=== PATIENT | female | born 2000 | race Caucasian/White ===

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

== ENCOUNTER → 2022-01-12 07:17 | Outpatient (CLI) | payer OTHER, SELFPAY ==
[2022-01-12 07:27] LABS: Microscopic, Urine URINE MICROSCOPIC (MICROSCOPIC)
[2022-01-12 08:29] LABS: HCG Qualitative, Serum Negative (Negative)
[2022-01-12 08:32] LABS: Appearance,Urine CLEAR (Clear); Bilirubin,Urine Negative (Negative); Blood, Urine 2+ (Negative); Color,Urine YELLOW (Yellow); Glucose,Urine (UA) Negative (Negative); Ketones,Urine Negative (Negative); Leukocyte Esterase,Urine Negative (Negative); Nitrate,Urine Negative (Negative); Protein,Urine Negative (Negative); Specific Gravity, Urine >= 1.030 (1.005-1.030)
[2022-01-12 08:58] LABS: Bacteria,Urine 1+ /lpf; Mucus,Urine 1+ /lpf
[2022-01-13 09:23] LABS: HIV Screen 4th Generation wRfx Non Reactive (Non Reactive)
[2022-01-13 12:13] LABS: Hep A Ab, IgM Negative (Negative); Hepatitis B Core Antibody IgM Negative (Negative); Hepatitis B Surface Antigen Negative (Negative); Hepatitis C Antibody <0.1 s/co ratio (0.0-0.9)
[2022-01-13 15:29] LABS: Treponema pallidum Ab (FTA-ABS Non Reactive (Non Reactive)
[2022-01-14 09:14] LABS: Neisseria gonorrhoeae, NAA Negative (Negative)
== END ==
PROVIDERS: Visit Provider Internal Medicine Adolescent Medicine
DX: N94.6 Dysmenorrhea, unspecified (principal); R30.0 Dysuria; Z11.3 Encounter for screening for infections with a predominantly sexual mode of transmission; Z11.4 Encounter for screening for human immunodeficiency virus [HIV]
CPT/HCPCS: 36415; 80074; 81001; 84703; 86703; 86780; 87591; G0432

== ENCOUNTER 2023-09-29 15:31 | Emergency (ER) | payer OTHER, SELFPAY ==
[2023-09-29 16:30] VITALS: BP 123/70; PULSE 88; RESP 21; TEMP 36.6; O2SAT 100; BMI 29.8
--- NOTE | 2023-09-29 16:39 | EXP.UTC ---
Discharge Plan Disposition Patient Disposition: Home, Self-Care Condition: Good Prescriptions Prescriptions: No Action hydrocortisone 28.4 GM cream 1 applicatio TP BID Qty: 1 0RF Rx Instructions: apply to eczema on both hands twice daily meloxicam 15 MG tablet 15 mg PO DAILY Qty: 7 0RF Referrals Follow up/Referrals: Provider,Referral, MD [Primary Care Provider] - See instructions Activity Restrictions/Add. Instructions Additional Instructions/Restrictions: *Monitor Temp, Over the counter Motrin or Tylenol as directed/as needed Tylenol every 4 hours and Motrin every 6 hours (as long as your family doctor has told you that you can take it) for fever or pain. and straight to ER if unable to lower temp less than 101.0 after medication given *Humidifier/Vaporizer Follow up IMMEDIATELY for new or worsening symptoms or no Noticeable improvement over the next 48-72 hours. 911 for difficulty breathing or swallowing You were tested for today for COVID19 your test result should be back in the next 24hours you may check your results on the [facility]? My Health Portal if you are positive you must Quarantine for 5 days Clinical Impressions Clinical Impression: Exposure to COVID-19 virus Instructions Patient Instructions: DI for COVID-19 (Suspected or Confirmed ) Discharge ED Provider: Tiffani Garza [facility] [place] HPI General Stated complaint: exposed to covid- test Time Seen by Provider: 09/29/23 16:39 History of Present Illness Provider Complaint: Patient states that she was around family member at [facility] that tested positive for COVID States that she isnt having any symptoms or anything but wanted to get tested due to exposure Related Data Previous Rx's Medication Instructions Recorded hydrocortisone 1 % topical cream 1 applicatio TP BID #1 tube 01/12/21 meloxicam 15 mg tablet 15 mg PO DAILY #7 tabs 12/11/21 Allergies Allergy/AdvReac Type Severity Reaction Status Date / Time No Known Allergies Allergy Verified 08/03/19 15:18 [facility] Disclaimer: The information contained in this section may have been updated after the patient was seen, as this information can be updated by other users. Social History Smoking Status: Current every day smoker alcohol intake: never substance use type: denies use current occupational status: other Travel in the last 8 weeks: None household members: family housing: house ROS Obtained: Yes All systems reviewed & no additional complaints except as documented and Yes Systems reviewed as appropriate & no additional complaints except as documented Constitutional Constitutional: Reports system reviewed and no additional complaints, except as documented and Reports as per HPI ENT Ears, Nose, Mouth, and Throat: Reports system reviewed and no additional complaints, except as documented, Reports as per HPI, Denies otalgia, Denies nasal congestion, Denies nasal discharge, Denies sinus pressure and Denies sore throat Cardiovascular Cardiovascular: Reports system reviewed and no additional complaints, except as documented and Reports as per HPI Respiratory Respiratory: Reports system reviewed and no additional complaints, except as documented, Reports as per HPI, Denies shortness of breath, Denies chest congestion and Denies cough Gastrointestinal Gastrointestingal: Reports system reviewed and no additional complaints, except as documented and as per HPI Musculoskeletal Musculoskeletal: Reports system reviewed and no additional complaints, except as documented and Reports as per HPI Physical Exam General General appearance: alert and in no apparent distress ENT ENT exam: Present mucous membranes moist Expanded ENT Exam Nose exam: Absent sinus tenderness Throat exam: Present normal inspection Chest Chest inspection: Present normal inspection and symmetric chest wall rise Respiratory Respiratory exam: Present normal lung sounds bilaterally; Absen
[2023-09-29 16:59] VITALS: BP 123/70; PULSE 88; RESP 21; TEMP 36.6; O2SAT 100
== END 2023-09-29 17:05 | disposition home or self-care (01) ==
PROVIDERS: Emergency Provider Nurse Practitioner
DX: Z20.822 Contact with and (suspected) exposure to COVID-19 (principal)
CPT/HCPCS: 87635; 99212; G0463

== ENCOUNTER 2023-10-09 17:38 | Emergency (ER) | payer OTHER, SELFPAY ==
[2023-10-09 17:39] VITALS: BP 157/90; PULSE 88; RESP 18; TEMP 36.4; O2SAT 97; BMI 27.1
--- NOTE | 2023-10-09 17:44 | PC.NURSE ---
pt unable to urinate at this time, states she urinated right before arrival
[2023-10-09 18:00] VITALS: BP 141/79; PULSE 118; RESP 20; O2SAT 96
[2023-10-09 18:30] VITALS: BP 143/99; PULSE 120; RESP 20; O2SAT 96
--- NOTE | 2023-10-09 18:40 | CT_ITS ---
PROCEDURE INFORMATION: Exam: CT Abdomen And Pelvis Without Contrast Exam date and time: 10/09/2023 7:45 PM Age: 23 years old Clinical indication: Other: Hematuria; Abdominal pain; Generalized; Additional info: Flank pain, hematuria, recent passed urine TECHNIQUE: Imaging protocol: Computed tomography of the abdomen and pelvis without contrast. Total images: 292 Radiation optimization: All CT scans at this facility use at least one of these dose optimization techniques: automated exposure control; mA and/or kV adjustment per patient size (includes targeted exams where dose is matched to clinical indication); or iterative reconstruction. REPORTING DATA: Count of CT and Cardiac NM exams in prior 12 months: This patient has received 0 known CTs and 0 known cardiac nuclear medicine studies in the 12 months prior to the current study. COMPARISON: CR XR PELVIS 1-2V 02/18/2020 9:45 PM FINDINGS: Lungs: Calcified right lower lobe granuloma. Lung bases are otherwise clear. Heart: Normal heart size. Liver: Normal. No mass. Gallbladder and bile ducts: Contracted gallbladder. No calcified gallstones. No bile duct dilatation. Pancreas: Normal. No ductal dilation. Spleen: Normal. No splenomegaly. Adrenal glands: Normal. No mass. 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 No hydronephrosis, nephrolithiasis, or perinephric fluid. No discrete renal mass. No ureteral stones. Stomach and bowel: Mild gastric distention with recently ingested content. Unremarkable duodenum. Subjective small bowel wall thickening. No ileus or bowel obstruction. Unremarkable terminal ileum. Moderate colonic stool burden. No acute colonic inflammatory process. Unremarkable rectum. Appendix: Normal appendix. Intraperitoneal space: Unremarkable. No free air. No significant fluid collection. Vasculature: Abdominal aorta is normal in caliber. Major abdominal vessels enhance appropriately. Lymph nodes: Small benign-appearing bilateral inguinal lymph nodes. Urinary bladder: Collapsed bladder. Reproductive: Retroverted uterus. Physiologic ovaries. No adnexal mass. Bones/joints: No acute osseous abnormality. Minor degenerative changes lower thoracic spine. Soft tissues: Unremarkable. IMPRESSION: 1. Subjective wall thickening proximal jejunum concerning for nonspecific enteritis. No complicating features. 2. 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
--- NOTE | 2023-10-09 18:45 | HMH.EDGENADL ---
Discharge Plan Disposition Patient Disposition: Home, Self-Care Prescriptions Prescriptions: New sulfamethoxazole-trimethoprim [Bactrim DS] 800-160 mg tablet 1 tab PO BID 10 Days Qty: 20 0RF No Action hydrocortisone 28.4 GM cream 1 applicatio TP BID Qty: 1 0RF Rx Instructions: apply to eczema on both hands twice daily meloxicam 15 MG tablet 15 mg PO DAILY Qty: 7 0RF Referrals Follow up/Referrals: Pierce Gudino MD [Staff Physician] - See instructions (call to make next available appointment ) Zachery Bro MD [Primary Care Provider] - See instructions Activity Restrictions/Add. Instructions Additional Instructions/Restrictions: You have an infection of your horseshoe kidney which is a congenital abnormality as discussed. It is very important that you follow-up with a urologist both to establish a relationship and to ensure resolution of your symptoms. No evidence of any kidney stones. Please take your antibiotics through completion. Return with high fevers severe abdominal pain other concerns etc. You may follow-up with Dr. Pierce Gudino here at [place] or with any other urologist of your choosing. Clinical Impressions Clinical Impression: Pyelonephritis, Horseshoe kidney Instructions Patient Instructions: DI for Urinary Tract Infection (UTI), DI for Urinary Tract Infection in Children Discharge ED Provider: Linda Rosa General Adult HPI General Chief complaint: Urogenital-Female Stated complaint: blood in urine Time Seen by Provider: 10/09/23 18:32 Mode of Arrival: Ambulatory Source of Information: Patient Limitations: No Limitations Description of Symptoms (Recalled from ER Triage Doc. by RN): blood in urine; pain with urination; passed 2 kidney stones 2 weeks ago History of Present Illness HPI narrative: Patient is a 23-year-old female presenting today with peeing blood. She also states is very painful with urination. 2 weeks ago she began having severe pain with urination and called her mom into the bathroom and they both stated that she had visualized kidney stones that they thought were passed at that point. She had persistent pain 2 days after that but felt better for a few days. Following that she began having right lower quadrant right upper quadrant and right flank pain for the last week culminating in hematuria over the last several days. She denies any fevers or chills. Related Data Previous Rx's Medication Instructions Recorded hydrocortisone 1 % topical cream 1 applicatio TP BID #1 tube 01/12/21 meloxicam 15 mg tablet 15 mg PO DAILY #7 tabs 12/11/21 sulfamethoxazole 800 1 tab PO BID 10 days #20 tabs 10/09/23 mg-trimethoprim 160 mg tablet (Bactrim DS) Allergies Allergy/AdvReac Type Severity Reaction Status Date / Time No Known Allergies Allergy Verified 08/03/19 15:18 [facility] Disclaimer: The information contained in this section may have been updated after the patient was seen, as this information can be updated by other users. Social History Smoking Status: Current every day smoker alcohol intake: never substance use type: denies use current occupational status: other Travel in the last 8 weeks: None household members: family housing: house ROS Obtained: Yes All systems reviewed & no additional complaints except as documented Physical Exam General General appearance: alert Respiratory Respiratory exam: Present normal lung sounds bilaterally Cardiovascular Cardiovascular exam: Present tachycardia Abdominal Exam Abdominal exam: Present soft and tenderness (Right upper quadrant right lower quadrant tenderness to palpation no rebound or guarding) Back Exam Back exam: Present CVA tenderness (R) Neurological Exam Neurological exam: Present alert and oriented X3 Medical Decision Making Akil Inquiry Pt receiving controlled substance: No Vital Signs: 10/09/23 17:39 10/09/23 18:00 10/09/23 18:30 Temperature 97
[2023-10-09 19:18] LABS: Microscopic, Urine URINE MICROSCOPIC (MICROSCOPIC)
[2023-10-09 19:21] LABS: Basophils # 0.1 K/mm3 (0-0.2); Basophils % 0.7 % (0.1-2.0); Eosinophils # 0.4 K/mm3 (0.0-0.4); Eosinophils % 4.5 % (0.1-12.0); Hematocrit 40.3 % (37.0-47.0); Hemoglobin 13.5 g/dL (12.2-16.2); Lymphocytes # 2.9 K/mm3 (0.7-4.5); Lymphocytes % 32.9 % (10-50); Mean Corpuscular HGB Conc 33.5 g/dL (31.8-35.4); Mean Corpuscular Hemoglobin 28.5 pg (27.0-31.2); Mean Corpuscular Volume 85.1 fl (81-99); Mean Platelet Volume 7.3 fl (7.4-10.4); Monocytes # 0.4 K/mm3 (0.1-1.0); Monocytes % 4.8 % (1.7-9.3); Neutrophils % 57.1 % (37.0-80.0); Platelet Count 445 K/mm3 (142-424); Red Blood Count 4.73 M/mm3 (4.20-5.40); Red Cell Distribution Width 15.2 % (11.5-17.5); White Blood Count 8.8 K/mm3 (4.8-10.8)
[2023-10-09 19:23] LABS: Chloride 104 mmol/L (98-107); Potassium 4.2 mmoL/L (3.5-5.1); Sodium 139 mmol/L (136-145)
[2023-10-09 19:25] LABS: Alanine Aminotransferase 51 U/L (12-78); Aspartate Amino Transferase 55 U/L (14-36); Blood Urea Nitrogen 17 mg/dl (7-17); Creatinine Clearance Estimated 178 mL/min (50-200); Estimated Glomerular Filt Rate 126 ml/min (>60); GFR (African American) 153 ML/MIN (>60)
[2023-10-09 19:26] LABS: Albumin Level 4.2 g/dl (3.5-5.0); Albumin/Globulin Ratio 1.3 (1.1-1.8); Alkaline Phosphatase 111 U/L (38-126); Anion Gap 11.2 mEq/L (5-15); Bilirubin,Total 0.4 mg/dl (0.2-1.3); Calcium 8.8 mg/dl (8.4-10.2); Carbon Dioxide 28 mmol/L (22.0-30.0); Globulin 3.2 g/dL (1.3-3.2); Glucose 88 mg/dl (74-100); Total Protein,Serum 7.4 g/dl (6.3-8.2)
[2023-10-09 19:29] LABS: Appearance,Urine CLEAR (Clear); Blood, Urine 3+ (Negative); Color,Urine YELLOW (Yellow); Glucose,Urine (UA) Negative (Negative); Ketones,Urine Negative (Negative); Leukocyte Esterase,Urine TRACE (Negative); Nitrate,Urine Negative (Negative); PH,Urine 6.5 (5.0-8.5); Protein,Urine TRACE (Negative); Specific Gravity, Urine >= 1.030 (1.005-1.030)
[2023-10-09 19:31] LABS: Bilirubin,Urine 1+ (Negative)
[2023-10-09 19:38] LABS: HCG Qualitative, Serum Negative (Negative)
[2023-10-09 19:56] LABS: RBC,Urine 20-50 #/hpf (0-3)
[2023-10-09 19:57] LABS: Bacteria,Urine Trace /lpf
[2023-10-09 20:31] VITALS: BP 146/94; PULSE 103; RESP 17; TEMP 36.9; O2SAT 98
[2023-10-11 23:11] LABS: Neisseria gonorrhoeae, NAA Negative (Negative)
== END 2023-10-09 20:34 | disposition home or self-care (01) ==
PROVIDERS: Emergency Provider Student in an Organized Health Care Education/Training Program; PCP Internal Medicine Adolescent Medicine
DX: N12 Tubulo-interstitial nephritis, not specified as acute or chronic (principal); Q63.1 Lobulated, fused and horseshoe kidney; R31.9 Hematuria, unspecified; R10.11 Right upper quadrant pain; R10.31 Right lower quadrant pain; R00.0 Tachycardia, unspecified; F17.200 Nicotine dependence, unspecified, uncomplicated
CPT/HCPCS: 74176; 80053; 81001; 84703; 85025; 87491; 87591; 96361; 96374; 96375; 99285; J2405; Q9967

== ENCOUNTER 2023-10-18 20:20 | Emergency (ER) | payer OTHER, SELFPAY ==
[2023-10-18] VITALS (7 sets, daily range): BP systolic 108–145; BP diastolic 68–105; PULSE 73–97; RESP 16; TEMP 36.6–36.8; O2SAT 96–100; BMI 25.0
--- NOTE | 2023-10-18 20:25 | ECG_ITS ---
APPROVED REPORT Exam: Resting ECG HR:79 bpm ECG Measurements Heart Rate 79 AXES IL 142 P 57 QRSd 100 QRS 53 QT 382 T 53 QTc 417 Conclusion SINUS RHYTHM WITH SINUS ARRHYTHMIA NORMAL ECG UNCONFIRMED REPORT Electronically signed by : Zachery Bro MD 10/19/2023 14:45:02
--- NOTE | 2023-10-18 20:33 | XR_ITS ---
PROCEDURE INFORMATION: Exam: XR Chest Exam date and time: 10/18/2023 8:36 PM Age: 23 years old Clinical indication: Injury or trauma; Other: Attempted cpr; Blunt trauma (contusions or hematomas); Additional info: H/o attempted cpr while she was syncopal TECHNIQUE: Imaging protocol: Radiologic exam of the chest. Views: 1 view. COMPARISON: CR XR CHEST PORTABLE 02/18/2020 9:46 PM FINDINGS: Lungs: Unremarkable. No consolidation. Pleural spaces: Unremarkable. No pleural effusion. No pneumothorax. Heart/Mediastinum: Unremarkable. No cardiomegaly. Bones/joints: Unremarkable. IMPRESSION: No acute findings.
[2023-10-18 20:45] LABS: Basophils # 0.1 K/mm3 (0-0.2); Basophils % 0.8 % (0.1-2.0); Eosinophils # 0.1 K/mm3 (0.0-0.4); Eosinophils % 1.5 % (0.1-12.0); Hematocrit 40.8 % (37.0-47.0); Hemoglobin 13.2 g/dL (12.2-16.2); Lymphocytes # 2.9 K/mm3 (0.7-4.5); Lymphocytes % 31.4 % (10-50); Mean Corpuscular HGB Conc 32.2 g/dL (31.8-35.4); Mean Corpuscular Hemoglobin 27.5 pg (27.0-31.2); Mean Corpuscular Volume 85.5 fl (81-99); Mean Platelet Volume 7.8 fl (7.4-10.4); Monocytes # 0.3 K/mm3 (0.1-1.0); Monocytes % 3.7 % (1.7-9.3); Neutrophils # 5.8 K/mm3 (1.8-7.8); Neutrophils % 62.6 % (37.0-80.0); Platelet Count 417 K/mm3 (142-424); Red Blood Count 4.77 M/mm3 (4.20-5.40); White Blood Count 9.3 K/mm3 (4.8-10.8)
[2023-10-18 20:50] LABS: Chloride 102 mmol/L (98-107); Lactic Acid 0.7 mmol/L (0.7-2.1); Potassium 3.7 mmoL/L (3.5-5.1); Sodium 137 mmol/L (136-145)
[2023-10-18 20:53] LABS: Alanine Aminotransferase 322 U/L (12-78); Albumin Level 4.3 g/dl (3.5-5.0); Albumin/Globulin Ratio 1.4 (1.1-1.8); Alkaline Phosphatase 182 U/L (38-126); Anion Gap 7.7 mEq/L (5-15); Aspartate Amino Transferase 227 U/L (14-36); Bilirubin,Total 0.4 mg/dl (0.2-1.3); Blood Urea Nitrogen 12 mg/dl (7-17); Calcium 8.3 mg/dl (8.4-10.2); Carbon Dioxide 31 mmol/L (22.0-30.0); Creatinine Clearance Estimated 170 mL/min (50-200); Estimated Glomerular Filt Rate 126 ml/min (>60); GFR (African American) 153 ML/MIN (>60); Globulin 3.1 g/dL (1.3-3.2); Glucose 127 mg/dl (74-100); Total Protein,Serum 7.4 g/dl (6.3-8.2)
--- NOTE | 2023-10-18 21:04 | HMH.EDGENADL ---
Discharge Plan Disposition Patient Disposition: Home, Self-Care Prescriptions Prescriptions: New nitrofurantoin monohyd/m-cryst [Macrobid] 100 mg capsule 100 mg PO BID 5 Days Qty: 10 0RF Rx Instructions: must administer with a meal/food No Action hydrocortisone 28.4 GM cream 1 applicatio TP BID Qty: 1 0RF Rx Instructions: apply to eczema on both hands twice daily meloxicam 15 MG tablet 15 mg PO DAILY Qty: 7 0RF sulfamethoxazole-trimethoprim [Bactrim DS] 800-160 mg tablet 1 tab PO BID 10 Days Qty: 20 0RF Referrals Follow up/Referrals: Provider,Referral, [Primary Care Provider] - See instructions Activity Restrictions/Add. Instructions Additional Instructions/Restrictions: Call your family doctor to establish care for this visit to the emergency department and schedule follow-up within 48 hours to ensure improvement. If you have any worsening of your condition or any other concerning signs or symptoms, return to the emergency department or your primary care doctor for further evaluation. Follow-up with neurology (Dr. Heath) as well as family doctor, Dr. Damon for further chronic management. Clinical Impressions Clinical Impression: Seizure UTI (urinary tract infection) Qualifiers: Urinary tract infection type: acute cystitis Hematuria presence: without hematuria Qualified Code(s): N30.00 - Acute cystitis without hematuria Instructions Patient Instructions: DI for Seizure Disorder -- Adult, DI for Seizure (Not Epilepsy/Seizure Disorder), DI for Seizure Disorder -- Child Discharge ED Provider: Benedict Mccollum General Adult HPI General Chief complaint: Seizure Stated complaint: Possible seizure Time Seen by Provider: 10/18/23 20:28 Mode of Arrival: EMS Source of Information: Patient Limitations: No Limitations Description of Symptoms (Recalled from ER Triage Doc. by RN): 23 yo female presents following unknown etiology syncopal episode. According to bystanders she was not responsive in her car, she was pulled out and cpr initiated. Following cpr initiation she woke up , and revealed she had a dx: of epilepsy. EMS reports they arrived on scene to the patient awake and alert,but when they attempted to transfer her, she became near-syncopal again. NSR on monitor, HR 84 bpm. Denies rec drug use. History of Present Illness HPI narrative: 23-year-old female history of seizure disorder presenting with seizure patient she, smoked a cigarette, did not feel well, sat in her car, that is lasting she remembers. Not bite her tongue or lose continence. Currently feeling sleepy. EMS was called because patient was asleep in her car, glucose was normal. Patient was not given Narcan, was arousable, but slow to respond on arrival and brought to emergency department for further evaluation. Not currently taking antiepileptic, although she is supposed to be and is taking an antibiotic for a kidney infection. Related Data Previous Rx's Medication Instructions Recorded hydrocortisone 1 % topical cream 1 applicatio TP BID #1 tube 01/12/21 meloxicam 15 mg tablet 15 mg PO DAILY #7 tabs 12/11/21 sulfamethoxazole 800 1 tab PO BID 10 days #20 tabs 10/09/23 mg-trimethoprim 160 mg tablet (Bactrim DS) nitrofurantoin 100 mg PO BID 5 days #10 caps 10/18/23 monohydrate/macrocrystals 100 mg capsule (Macrobid) Allergies Allergy/AdvReac Type Severity Reaction Status Date / Time No Known Allergies Allergy Verified 08/03/19 15:18 [facility] Disclaimer: The information contained in this section may have been updated after the patient was seen, as this information can be updated by other users. Social History Smoking Status: Unknown if ever smoked alcohol intake: never substance use type: denies use current occupational status: other Travel in the last 8 weeks: None household members: family housing: house ROS Obtained: Yes All systems reviewed & no additional complain
[2023-10-18 21:06] LABS: Troponin I < 0.01 ng/ml (0.00-0.034)
[2023-10-18 21:11] LABS: HCG,Quantitative < 2 mIU/ml (0-5.42)
[2023-10-18 21:38] LABS: T4 (Thyroxine) 13.7 ug/dl (5.53-11.0)
[2023-10-18 21:51] LABS: Thyroid Stimulating Hormone 2.89 uIU/mL (0.465-4.68)
[2023-10-18 22:31] LABS: Microscopic, Urine URINE MICROSCOPIC (MICROSCOPIC)
[2023-10-18 22:35] LABS: Appearance,Urine CLEAR (Clear); Bilirubin,Urine Negative (Negative); Blood, Urine Negative (Negative); Color,Urine YELLOW (Yellow); Glucose,Urine (UA) Negative (Negative); Ketones,Urine Negative (Negative); Leukocyte Esterase,Urine 1+ (Negative); Nitrate,Urine Negative (Negative); Protein,Urine Negative (Negative); Specific Gravity, Urine >= 1.030 (1.005-1.030)
[2023-10-18 22:48] LABS: Barbiturates Screen,Urine Negative ng/ml (<200)
[2023-10-18 22:49] LABS: Amphetamine/Metha Screen,Urine Negative ng/ml (<1000); Benzodiazepines Screen,Urine Negative ng/ml (<200)
[2023-10-18 22:50] LABS: Cocaine Screen,Urine Negative ng/ml (<300)
[2023-10-18 22:51] LABS: Cannabinoid Screen,Urine Positive ng/ml (<50); Methadone Screen,Urine Negative ng/ml (<300)
[2023-10-18 22:52] LABS: Opiate Screen,Urine Negative ng/ml (<300)
[2023-10-18 22:53] LABS: Phencyclidine Screen,Urine Negative ng/ml (<25)
[2023-10-19 06:27] LABS: POC Glucose,Bedside 131 (70-110)
--- NOTE | 2023-10-23 09:43 | PC.NURSE ---
urine results show urine urogenital lis, pt dc with macrobid, aware no further action needed
== END 2023-10-18 23:29 | disposition home or self-care (01) ==
PROVIDERS: Emergency Provider Emergency Medicine
DX: N30.00 Acute cystitis without hematuria (principal); G40.909 Epilepsy, unspecified, not intractable, without status epilepticus; R55 Syncope and collapse
CPT/HCPCS: 71045; 80053; 80305; 81001; 82962; 83605; 84436; 84443; 84484; 84702; 85025; 87086; 93005; 96361; 96365; 96375; 99285; J0696; J1953

== ENCOUNTER 2025-10-30 12:54 | Emergency (ER) | payer OTHER, SELFPAY ==
[2025-10-30 13:07] VITALS: BP 123/78; PULSE 113; RESP 18; TEMP 36.7; O2SAT 94; BMI 36.8
[2025-10-30 13:16] LABS: Coronavirus 19, PCR Not Detected (NotDetected); Influenza B, PCR Not Detected (NotDetected)
[2025-10-30 13:18] VITALS: BP 123/78; PULSE 106; RESP 18; O2SAT 96
--- NOTE | 2025-10-30 13:18 | XR_ITS ---
FINAL REPORT TECHNIQUE: Single view chest CLINICAL HISTORY: cough COMPARISON: 10/18/2023 FINDINGS: No acute pulmonary opacity is present. There is no evidence of effusion or pneumothorax. Mediastinum is unremarkable. Heart size is normal. IMPRESSION: No acute abnormality. Reviewed, Interpreted and Dictated by Jacinda Collins MD Transcribed by Malena Rai Authenticated and [facility]
--- NOTE | 2025-10-30 13:20 | ED_ITS ---
Discharge Plan Disposition Patient Disposition: Home, Self-Care Prescriptions Prescriptions: New ondansetron 4 mg tablet,disintegrating 4 mg PO Q6H PRN (Reason: nausea and vomiting) Qty: 12 0RF No Action hydrocortisone 28.4 GM cream 1 applicatio TP BID Qty: 1 0RF Rx Instructions: apply to eczema on both hands twice daily nitrofurantoin monohyd/m-cryst [Macrobid] 100 mg capsule 100 mg PO BID 5 Days Qty: 10 0RF Rx Instructions: must administer with a meal/food levetiracetam [Keppra] 500 mg tablet 500 mg PO BID 14 Days Qty: 28 0RF meloxicam 15 MG tablet 15 mg PO DAILY Qty: 7 0RF sulfamethoxazole-trimethoprim [Bactrim DS] 800-160 mg tablet 1 tab PO BID 10 Days Qty: 20 0RF Referrals Follow up/Referrals: Alina Sultana APRN [Primary Care Provider, Medical] - See instructions Activity Restrictions/Add. Instructions Additional Instructions/Restrictions: Your workup shows that you have influenza A. I encourage you to take Tylenol and ibuprofen every 6 hours as needed to help with symptoms. Continue to hydrate well by drinking plenty of fluids. I prescribed Zofran to help with any nausea or vomiting. Follow-up with your primary care physician if symptoms do not improve over the next week. If you develop any new or worsening symptoms, or if you become concerned for your help for any reason, return to the emergency department for evaluation Clinical Impressions Clinical Impression: Influenza A Stand Alone Forms Stand Alone Forms: Work/School Release Instructions Patient Instructions: DI for Diarrhea and Traveler's Diarrhea in Adults, DI for Diarrhea and Traveler's Diarrhea in Children, DI for Nausea in Adults, DI for Nausea in Children Print Language Print Language: Serbian Discharge ED Provider: Michael Albarado Adult HPI General Chief complaint: Nausea/Vomiting/Diarrhea Stated complaint: headache, vomiting, fever, body aches Time Seen by Provider: 10/30/25 12:58 Mode of Arrival: Ambulatory Source of Information: Patient Description of Symptoms (Recalled from ER Triage Doc. by RN): Reports not feeling well for 3 days. States that she has been having night sweats, nausea and vomiting. History of Present Illness HPI narrative: Flor Patel is a 25-year-old female with no significant past medical history who presents to the emergency department for 3 days of dry cough, sore throat, bilateral ear pain, fever at home. Patient states that her sibling was recently positive for flu. Patient states that she has been taking [id number] pain reliever and last took it just prior to arrival. She states that both ears are painful and that she is having pain with swallowing. She reports a dry cough but no significant chest pain. Related Data Previous Rx's ?Medication ?Instructions ?Recorded hydrocortisone 1 % topical cream 1 applicatio TP BID # 1 tube 01/12/21 meloxicam 15 mg tablet 15 mg PO DAILY #7 tabs 12/11 sulfamethoxazole 800 1 tab PO BID 10 days #20 tab s 10/09/23 mg-trimethoprim 160 mg tablet (Bactrim DS) levetiracetam 500 mg tablet 500 mg PO BID 2 weeks #28 tabs 10/18/23 (Keppra) nitrofurantoin 100 mg PO BID 5 days #10 cap s 10/18/23 monohydrate/macrocrystals 100 mg capsule (Macrobid) ondansetron 4 mg disintegrating 4 mg PO Q6H PRN nausea and 10/30/25 tablet vomiting #12 tabs Allergies Allergy/AdvReac Type Severity Reaction Status Date / Time No Known Allergies Allergy Verified 08/03/19 15:18 [facility] Disclaimer: The information contained in this section may have been updated after the patient was seen, as this information can be updated by other users. Social History Smoking Status: Current every day smoker alcohol intake: never substance use type: denies use current occupational status: other Travel in the last 8 weeks?: None household members: family housing: house Have you lived/traveled outside [place] in past 30 days?: No Contact w/someone who lives/traveled outside [place] past 30 days?: No Exposure to someone with infectious disease in past 14 days?: No Do you have a fever (greater than 100.4 F or 38 C)?: No Have you tested positive for COVID-19?: No Exposed to someone with COVID-19 in past 14 days?: No Do you have a sore throat?: No Do you have a cough?: No Do you have any weakness?: No Do you have any diarrhea?: No Are you experiencing any unusual bleeding?: No Do you have any muscle aches/pain?: No Do you have any abdominal pain?: No Are you experiencing loss of taste or smell?: No Other Medical History Have you received the Flu Vaccine for this season: No Have you received the Pneumonia Vaccine: No ROS Obtained: Yes Systems reviewed as appropriate & no additional complaints except as documented Physical Exam General General appearance: alert and in no apparent distress Head Head exam: atraumatic Eye Eye exam: Present normal appearance ENT ENT exam: Present normal external ear exam; Absent normal oropharynx (Posterior oropharyngeal erythema without tonsillar swelling or exudate. Uvula is midline.) Neck Neck exam: Present full ROM Chest Chest inspection: Present symmetric chest wall rise Respiratory Respiratory exam: Present normal lung sounds bilaterally and other (Dry cough); Absent respiratory distress, wheezes or stridor Cardiovascular Cardiovascular exam: Present regular rate and normal rhythm Abdominal Exam Abdominal exam: Present soft; Absent tenderness or guarding Extremities Exam Extremities exam: Present normal inspection Back Exam Back exam: Present normal inspection Neurological Exam Neurological exam: Present alert and oriented X3 Psychiatric Psychiatric exam: Present normal affect Skin Skin exam: Present warm and dry Medical Decision Making Medical Records Screening: Per USPSTF and CDC recommendations, given the prevalence of disease in our region, it is our hospital?s policy to screen for HIV and viral Hepatitis for all patients aged 18 and over and those with ongoing risk factors. Akil Inquiry Pt receiving controlled substance: No Vital Signs: 10/30/25 13:07 10/30/25 13:18 Temperature 98.0 F Temperature Source Oral Pulse Rate 106 H Pulse Rate [Radial] 113 H Respiratory Rate 18 18 Blood Pressure 123/78 Blood Pressure [Right Arm] 123/78 Blood Pressure Mean [Right Arm] 93 Blood Pressure Source Automatic Cuff Blood Pressure Source [Right Arm] Automatic Cuff Blood Pressure Position Sitting Blood Pressure Position [Right Arm] Sitting 02 Sat by Pulse Oximetry 94 L 96 Oxygen Delivery Method Room Air Room Air Lab Data Lab Results 10/30/25 13:00: SARS-CoV-2 (PCR) Not detected, Influenza A Untype (PCR) Detected A, Influenza Type B (PCR) Not detected Orders (Tests/Meds): ED MEDICATIONS Discontinued Medications Generic Name Dose Route Start Last Admin Trade Name Freq PRN Reason Stop Dose Admin Ondansetron HCl 4 mg 10/30/25 13:18 10/30/25 13:31 Ondansetron 4mg Odt SL 10/30/25 13:19 4 mg ONCE ONE Administration ORDERS Category Date Time Status CXR --portable [XR chest portable] Stat Exams 10/30/25 13:18 Taken HIV Combo Stat Lab 10/30/25 13:09 Ordered Hepatitis C Ab Qual. W/ RFX Stat Lab 10/30/25 13:09 Ordered Rapid PCR Covid and Flu A/B Stat Lab 10/30/25 13:00 Completed Medical Decision Narrative: Flor Patel is a 25-year-old female with no significant past medical history who presents to the emergency department for 3 days of dry cough, sore throat, bilateral ear pain, fever at home. Patient states that her sibling was recently positive for flu. Patient states that she has been taking [id number] pain reliever and last took it just prior to arrival. She states that both ears are painful and that she is having pain with swallowing. She reports a dry cough but no significant chest pain. On arrival, patient is mildly tachycardic, afebrile, blood pressure within normal limits. Afebrile. Oxygen saturation 96% on room air. Physical exam, stated above, revealed a nontoxic-appearing female in no distress. She is alert and answer questions appropriately. She has mild tachycardia but no murmurs or rubs. No wheezing, rales or rhonchi. Posterior oropharynx is erythematous without tonsillar swelling or exudates. She has no swelling or erythremia of her bilateral tympanic membranes. Differential diagnosis includes, but is not limited to: Viral respiratory illness such as flu or COVID, pneumonia, dehydration. I considered laboratory studies, however do not feel these are indicated at this time as patient appears well-hydrated and symptomatology is most consistent with a viral illness. Will obtain chest x-ray to rule out pneumonia and administer 4 mg of sublingual Zofran for nausea. Will obtain rapid COVID and flu testing. Chest x-ray interpreted by me personally. No focal consolidation, no pneumothorax, no widened mediastinum, no enlargement of the cardiac silhouette. Unremarkable chest x-ray. See radiology report for details. Patient tested positive for flu A, which I do feel explains her symptomatology. Recommended Tylenol, ibuprofen and hydration at home. She is out of the window for any benefit of Tamiflu at this point. Will prescribe Zofran to help with nausea and vomiting and encouraged her to follow-up with her primary care doctor. All questions were answered. She demonstrated understanding and was in agreement this plan. She was then discharged from the emergency department in stable condition Critical Care Critical Care Time Critical Care Time: No
[2025-10-30] MEDS: ONDANSETRON 4MG ODT 4 MG SL (13:31)
[2025-10-30 13:42] LABS: Influenza A, PCR Detected (NotDetected)
[2025-10-30 13:53] VITALS: BP 123/78; PULSE 90; RESP 18; TEMP 36.7; O2SAT 96
== END 2025-10-30 13:54 | disposition home or self-care (01) ==
PROVIDERS: Emergency Provider Student in an Organized Health Care Education/Training Program; PCP Nurse Practitioner Family
DX: J10.1 Influenza due to other identified influenza virus with other respiratory manifestations (principal); R50.9 Fever, unspecified; H92.03 Otalgia, bilateral; R07.0 Pain in throat; F17.210 Nicotine dependence, cigarettes, uncomplicated
CPT/HCPCS: 71045; 87636; 99283; 99284; Q0162